=== PATIENT | male | born 1965 | race Caucasian/White ===

== ENCOUNTER 2018-01-27 09:51 | Day surgery (SDC) | payer OTHER ==
[~2018-01-27] VITALS: Ht 177.8 cm; Wt 88.6 kg
[~2018-01-27 09:51] MED LIST: APIX5TAB PO; METO25TA35 PO
[2018-01-27 10:14] VITALS: BP 136/81
[2018-01-27] MEDS ORDERED: LISI5TAB7 PO (10:36)
[2018-01-27] MEDS ORDERED: METO25TA91 PO (10:36)
[2018-01-27] MEDS ORDERED: PROPOFOL 10 MG/ML, 20ML ONE (12:15)
== END 2018-01-27 13:00 ==
LOC: CACL 09:51
PROVIDERS: ATTEND Internal Medicine Cardiovascular Disease
DX: I48.91 Unspecified atrial fibrillation (principal); I10 Essential (primary) hypertension
CPT/HCPCS: 92960; 93005; J2704

== ENCOUNTER 2018-05-03 08:56 | Day surgery (SDC) | payer OTHER ==
[~2018-05-03] VITALS: Ht 177.8 cm; Wt 88.6 kg
[~2018-05-03 08:56] MED LIST changes: +LISI5TAB7 PO; +METO25TA91 PO
[2018-05-03] MEDS ORDERED: SODIUM CHLORIDE 0.9% 500 ML IV PRN (09:11)
[2018-05-03 09:22] VITALS: BP 126/80
[2018-05-03] MEDS ORDERED: PLEASE ENTER HEIGHT AND WEIGHT MC SCH (09:30)
[2018-05-03] MEDS ORDERED: DRON400T PO (09:34)
[2018-05-03] MEDS ORDERED: DILT120C58 PO (09:34)
[2018-05-03 09:55] LABS: ANION GAP 6 mmol/L (5-15); CALCIUM 8.8 mg/dL (8.5-10.1); CHLORIDE 108 mmol/L (98-107); CREATININE 1.27 mg/dL (0.7-1.3)
[2018-05-03 12:26] LABS: BASOPHILS # (AUTO) 0.06 x10^3/uL (0-0.1); BASOPHILS % (AUTO) 1 % (0-1); EOSINOPHILS # (AUTO) 0.11 x10^3/uL (0-0.4); EOSINOPHILS % (AUTO) 2 % (1-7); LYMPHOCYTES # (AUTO) 1.36 x10^3/uL (1-3.4); LYMPHOCYTES % (AUTO) 19 % (22-44); MD NO; MEAN CORPUSCULAR HEMOGLOBIN 31.5 pg (27.5-34.5); MEAN CORPUSCULAR HGB CONC 34.3 g/dL (33.2-36.2); MEAN PLATELET VOLUME 8.5 fL (7.4-10.4); MONOCYTES % (AUTO) 7 % (2-9); NEUTROPHILS % (AUTO) 72 % (42-75); PLATELET COUNT 295 x10^3/uL (130-400); RED BLOOD COUNT 4.87 x10^6/uL (4.38-5.82); RED CELL DISTRIBUTION WIDTH 13.4 % (9.4-14.8)
== END 2018-05-03 13:14 | disposition home or self-care (01) ==
LOC: CACL 08:56
PROVIDERS: ATTEND Internal Medicine Cardiovascular Disease
DX: I48.91 Unspecified atrial fibrillation (principal); I10 Essential (primary) hypertension; Z72.89 Other problems related to lifestyle
CPT/HCPCS: 36415; 80048; 85025; 92960; 93005

== ENCOUNTER → 2019-02-10 | Outpatient (CLI) | payer OTHER ==
[~2019-02-10] MED LIST changes: +DILT120C58 PO; +DRON400T PO
== END | disposition home or self-care (01) ==
LOC: CFH 08:49
PROVIDERS: ATTEND Internal Medicine Cardiovascular Disease
DX: I77.810 Thoracic aortic ectasia (principal); I42.9 Cardiomyopathy, unspecified
CPT/HCPCS: 0399T; 93306

== ENCOUNTER → 2020-03-16 | Outpatient (CLI) | payer OTHER | END | disposition home or self-care (01) | LOC: CFH 08:32 | PROVIDERS: ATTEND Internal Medicine Cardiovascular Disease | DX: I35.8 Other nonrheumatic aortic valve disorders (principal); I71.2 Thoracic aortic aneurysm, without rupture | CPT/HCPCS: 93306 ==

== ENCOUNTER 2020-04-12 08:55 | Emergency (ER) | payer OTHER ==
[~2020-04-12] VITALS: Ht 177.8 cm; Wt 89.9 kg
--- NOTE | 2020-04-12 09:23 | NUR ---
PT STATES THAT HE IS "IN A-FIB AGAIN". PT HAS PREVIOUS AFIB OCCURANCES. PT AMBULATORY WITH A STEADY GAIT. PLACED PT ON REHAB SPECIALIST, IV STARTED, PA AT BEDSIDE. WILL CONTINUE TO MONITOR PT.
[2020-04-12 09:40] LABS: BASOPHILS # (AUTO) 0.07 x10^3/uL (0-0.1); BASOPHILS % (AUTO) 1 % (0-1); EOSINOPHILS # (AUTO) 0.08 x10^3/uL (0-0.4); EOSINOPHILS % (AUTO) 1 % (1-7); LYMPHOCYTES % (AUTO) 35 % (22-44); MD NO; MEAN CORPUSCULAR HEMOGLOBIN 30.6 pg (27.5-34.5); MEAN CORPUSCULAR HGB CONC 33.6 g/dL (33.2-36.2); MEAN CORPUSCULAR VOLUME 90.8 fL (81-97); MEAN PLATELET VOLUME 7.9 fL (7.4-10.4); MONOCYTES # (AUTO) 0.64 x10^3/uL (0.2-0.8); MONOCYTES % (AUTO) 10 % (2-9); NEUTROPHILS # (AUTO) 3.45 x10^3/uL (1.8-6.8); NEUTROPHILS % (AUTO) 53 % (42-75); PLATELET COUNT 354 x10^3/uL (130-400); RED BLOOD COUNT 5.57 x10^6/uL (4.38-5.82)
[2020-04-12 09:51] LABS: ALBUMIN 4.2 g/dL (3.4-5.0); ANION GAP 7 mmol/L (5-15); CALCIUM 9.4 mg/dL (8.5-10.1); CHLORIDE 103 mmol/L (98-107); CREATININE 1.28 mg/dL (0.7-1.3)
[2020-04-12 09:55] LABS: TROPONIN I < 0.015 ng/mL (0.000-0.045)
[2020-04-12] MEDS ORDERED: FENTANYL PF 100 MCG/2ML ONE (10:30)
[2020-04-12] MEDS ORDERED: ETOMIDATE 20 MG/10 ML ONE (10:33)
[2020-04-12] MEDS ORDERED: ETOMIDATE 20 MG/10 ML IVPush ONE (11:00)
[2020-04-12] MEDS ORDERED: FENTANYL PF 100 MCG/2ML IVPush ONE (11:30)
[2020-04-12 12:18] VITALS: BP 112/82
== END 2020-04-12 12:21 | disposition home or self-care (01) ==
LOC: ED 10:11
DX: I48.20 Chronic atrial fibrillation, unspecified (principal); R42 Dizziness and giddiness; R06.02 Shortness of breath; R00.2 Palpitations; I10 Essential (primary) hypertension
CPT/HCPCS: 36415; 80048; 82040; 84484; 85025; 92960; 93005; 99285; J3010; 31500

== ENCOUNTER 2020-06-06 10:38 | Emergency (ER) | payer OTHER ==
[~2020-06-06] VITALS: Ht 177.8 cm; Wt 84.0 kg
--- NOTE | 2020-06-06 11:16 | NUR ---
PT STATES HX OF A FIB, DENIES ANY CP. PT PLACED ON MONITORS, VSS. PT HR IN LOW 100'S. PT DENIES OTHER SYMPTOMS. PT AWAITING ERMD ASSESSMENT. NO DISTRESS. CONT TO MONITOR.
[2020-06-06 11:40] LABS: BASOPHILS # (AUTO) 0.06 x10^3/uL (0-0.1); BASOPHILS % (AUTO) 1 % (0-1); EOSINOPHILS # (AUTO) 0.05 x10^3/uL (0-0.4); EOSINOPHILS % (AUTO) 1 % (1-7); LYMPHOCYTES # (AUTO) 1.96 x10^3/uL (1-3.4); LYMPHOCYTES % (AUTO) 25 % (22-44); MD NO; MEAN CORPUSCULAR HGB CONC 33.2 g/dL (33.2-36.2); MEAN CORPUSCULAR VOLUME 90.4 fL (81-97); MEAN PLATELET VOLUME 7.8 fL (7.4-10.4); MONOCYTES # (AUTO) 0.68 x10^3/uL (0.2-0.8); MONOCYTES % (AUTO) 9 % (2-9); NEUTROPHILS # (AUTO) 5.18 x10^3/uL (1.8-6.8); NEUTROPHILS % (AUTO) 65 % (42-75); PLATELET COUNT 374 x10^3/uL (130-400); RED BLOOD COUNT 5.03 x10^6/uL (4.38-5.82); RED CELL DISTRIBUTION WIDTH 13.4 % (9.4-14.8)
[2020-06-06 11:52] LABS: ALBUMIN 3.8 g/dL (3.4-5.0); ANION GAP 6 mmol/L (5-15); CHLORIDE 104 mmol/L (98-107); CREATININE 1.14 mg/dL (0.7-1.3)
[2020-06-06 11:57] LABS: TROPONIN I < 0.015 ng/mL (0.000-0.045)
--- NOTE | 2020-06-06 12:00 | NUR ---
REPORT GIVEN TO BRANDIE BRIONES.
[2020-06-06] MEDS ORDERED: PROPOFOL 10 MG/ML, 20ML ONE (12:39)
[2020-06-06 13:26] VITALS: BP 129/78
== END 2020-06-06 14:19 | disposition home or self-care (01) ==
LOC: ED 11:00
DX: I48.0 Paroxysmal atrial fibrillation (principal); I10 Essential (primary) hypertension; Z79.01 Long term (current) use of anticoagulants
CPT/HCPCS: 36415; 80048; 82040; 83735; 84484; 85025; 92960; 93005; 99285

== ENCOUNTER → 2020-06-29 | Outpatient (CLI) | payer OTHER | END | disposition home or self-care (01) | LOC: STAR 08:10 | PROVIDERS: ATTEND Internal Medicine Clinical Cardiac Electrophysiology | DX: Z01.818 Encounter for other preprocedural examination (principal); Z11.59 Encounter for screening for other viral diseases | CPT/HCPCS: 36415; 87635 ==

== ENCOUNTER → 2020-06-29 | Outpatient (CLI) | payer OTHER ==
[~2020-06-29] MED LIST changes: +OMNIPAQUE 350 MG/ML, 150 ML BOTTLE ONE
== END | disposition home or self-care (01) ==
LOC: CFH 09:08
PROVIDERS: ATTEND Internal Medicine Clinical Cardiac Electrophysiology
DX: I48.0 Paroxysmal atrial fibrillation (principal); M47.814 Spondylosis without myelopathy or radiculopathy, thoracic region
CPT/HCPCS: 71046; 75572; Q9967

== ENCOUNTER 2020-07-04 06:04 | Inpatient (IN) | payer OTHER ==
[~2020-07-04] VITALS: Ht 177.8 cm; Wt 87.8 kg
[~2020-07-04 06:04] MED LIST changes: -OMNIPAQUE 350 MG/ML, 150 ML BOTTLE ONE
[2020-07-04] MEDS ORDERED: SODIUM CHLORIDE 0.9% 1,000 ML IV SCH ×2 (06:22→06:30)
[2020-07-04 06:32] VITALS: BP 131/81
[2020-07-04 06:56] LABS: BASOPHILS # (AUTO) 0.06 x10^3/uL (0-0.1); BASOPHILS % (AUTO) 1 % (0-1); EOSINOPHILS # (AUTO) 0.11 x10^3/uL (0-0.4); EOSINOPHILS % (AUTO) 2 % (1-7); LYMPHOCYTES # (AUTO) 1.44 x10^3/uL (1-3.4); LYMPHOCYTES % (AUTO) 27 % (22-44); MD NO; MEAN CORPUSCULAR HEMOGLOBIN 30.8 pg (27.5-34.5); MEAN CORPUSCULAR HGB CONC 33.5 g/dL (33.2-36.2); MEAN PLATELET VOLUME 7.9 fL (7.4-10.4); MONOCYTES # (AUTO) 0.57 x10^3/uL (0.2-0.8); MONOCYTES % (AUTO) 11 % (2-9); NEUTROPHILS # (AUTO) 3.26 x10^3/uL (1.8-6.8); NEUTROPHILS % (AUTO) 60 % (42-75); PLATELET COUNT 320 x10^3/uL (130-400); RED BLOOD COUNT 4.42 x10^6/uL (4.38-5.82); RED CELL DISTRIBUTION WIDTH 13.8 % (9.4-14.8)
[2020-07-04 07:05] LABS: ANION GAP 8 mmol/L (5-15); CALCIUM 8.5 mg/dL (8.5-10.1); CHLORIDE 108 mmol/L (98-107)
[2020-07-04 07:06] LABS: CREATININE 0.84 mg/dL (0.7-1.3)
[2020-07-04] MEDS ORDERED: MIDAZOLAM 1 MG/ML, 2ML ONE (07:48)
[2020-07-04] MEDS ORDERED: FENTANYL PF 250 MCG/5ML ONE (07:48)
[2020-07-04] MEDS ORDERED: SUCCINYLCHOLINE 20 MG/ML, 10ML ONE (07:50)
[2020-07-04] MEDS ORDERED: DEXAMETHASONE 4 MG/ML, 1ML ONE ×2 (07:51→07:52)
[2020-07-04] MEDS ORDERED: PROPOFOL 10 MG/ML, 20ML ONE (07:52)
[2020-07-04] MEDS ORDERED: ROCURONIUM 10 MG/ML,10ML ONE (07:52)
[2020-07-04] MEDS ORDERED: ONDANSETRON 2MG/ML, 2ML ONE (07:52)
[2020-07-04] MEDS ORDERED: LIDOCAINE 2%, 20ML ONE (08:11)
[2020-07-04] MEDS ORDERED: APIXABAN 5 MG TABLET ONE (08:19)
[2020-07-04] MEDS ORDERED: VASOPRESSIN 20 UNIT/ML, 1ML ONE (09:00)
[2020-07-04] MEDS ORDERED: FENTANYL PF 100 MCG/2ML ONE ×2 (10:10→12:26)
[2020-07-04] MEDS ORDERED: ACETAMINOPHEN 325 MG TABLET PO PRN (14:00)
[2020-07-04] MEDS ORDERED: LABETALOL 5MG/ML, 20ML IV PRN (14:00)
[2020-07-04] MEDS ORDERED: HYDROmorphone 1 MG/ML, 1ML INJ IVPush PRN (14:00)
[2020-07-04] MEDS ORDERED: MEPERIDINE/PF 25MG/0.5ML IVPush PRN (14:00)
[2020-07-04] MEDS ORDERED: EPHEDRINE 50 MG/ML, 1ML IVPush PRN (14:00)
[2020-07-04] MEDS ORDERED: OXYcodone 5 MG/5 ML ORAL.SOL UDC PO PRN (14:00)
[2020-07-04] MEDS ORDERED: ONDANSETRON 2MG/ML, 2ML IVPush PRN ×2 (14:00→17:00)
[2020-07-04] MEDS ORDERED: hydrALAzine 20 MG/ML, 1ML IV PRN (14:00)
[2020-07-04] MEDS ORDERED: ALBUTEROL SULFATE 2.5 MG/3 ML NPPB PRN (14:00)
[2020-07-04] MEDS ORDERED: DIPHENHYDRAMINE 50 MG/ML, 1ML IVPush PRN (14:00)
[2020-07-04] MEDS ORDERED: FENTANYL PF 100 MCG/2ML IV PRN (14:00)
[2020-07-04] MEDS ORDERED: PROMETHAZINE 12.5 MG SUPP PR PRN (14:00)
[2020-07-04] MEDS ORDERED: PROMETHAZINE 25 MG/ML, 1ML IVPush PRN (14:00)
[2020-07-04] MEDS ORDERED: MIDAZOLAM 1 MG/ML, 2ML IV PRN (14:00)
[2020-07-04] MEDS ORDERED: DIAZEPAM 5 MG/ML, 2ML IVPush PRN (14:00)
[2020-07-04] MEDS: APIXABAN 5 MG TABLET PO SCH (14:11)
[2020-07-04] MEDS ORDERED: PANTOPRAZOLE 20MG TABLET PO ONE (14:30)
[2020-07-04 15:28] VITALS: BP 118/74
[2020-07-04] MEDS ORDERED: ACETAMINOPHEN 500 MG TABLET PO PRN (17:00)
[2020-07-04] MEDS: SOTALOL 80MG TABLET PO SCH (18:35)
[2020-07-04 19:55] VITALS: BP 105/73
[2020-07-04 20:40] VITALS: BP 110/69
[2020-07-04 21:05] VITALS: BP 105/73
[2020-07-04 21:53] VITALS: BP_SYST 110; BP_SYST 92; BP_DIAS 58; BP_DIAS 69
[2020-07-04] MEDS: DIPHENHYDRAMINE 25 MG CAPSULE PO PRN (22:25)
[2020-07-05 01:21] VITALS: BP 96/61
[2020-07-05] MEDS: SOTALOL 80MG TABLET PO SCH ×2 (06:17→18:40)
[2020-07-05 07:08] VITALS: BP 111/73
[2020-07-05] MEDS: APIXABAN 5 MG TABLET PO SCH ×2 (09:02→20:29)
[2020-07-05] MEDS: LISINOPRIL 20 MG TABLET PO SCH (09:02)
[2020-07-05] MEDS ORDERED: KETOROLAC 30 MG/1 ML IVPush PRN (10:00)
[2020-07-05 12:48] VITALS: BP 102/62
[2020-07-05] MEDS: DIPHENHYDRAMINE 25 MG CAPSULE PO PRN (20:29)
[2020-07-05 21:36] VITALS: BP 118/81
[2020-07-06 02:30] VITALS: BP 110/80
[2020-07-06] MEDS: SOTALOL 80MG TABLET PO SCH (06:24)
[2020-07-06 06:39] VITALS: BP 119/76
[2020-07-06] MEDS ORDERED: SOTA80TA18 PO (09:08)
[2020-07-06] MEDS: APIXABAN 5 MG TABLET PO SCH (09:43)
[2020-07-06] MEDS: LISINOPRIL 20 MG TABLET PO SCH (09:44)
== END 2020-07-06 12:07 | disposition home or self-care (01) | DRG 274 ==
LOC: CACL 06:04 → ORIP 13:43 → 5SO 15:17 → OBSVTOIN 07-05 16:22 → DCLOUNGE 07-06 11:58
PROVIDERS: ADMIT Internal Medicine Clinical Cardiac Electrophysiology; ATTEND Internal Medicine Clinical Cardiac Electrophysiology
PROC: 02K83ZZ Map Conduction Mechanism, Percutaneous Approach (ICD-10-PCS; 2020-07-04)
PROC: B246YZZ Ultrasonography of Right and Left Heart using Other Contrast (ICD-10-PCS; 2020-07-04)
PROC: 4A12X45 Monitoring of Cardiac Electrical Activity, Ambulatory, External Approach (ICD-10-PCS; 2020-07-04)
PROC: 02583ZZ Destruction of Conduction Mechanism, Percutaneous Approach (ICD-10-PCS; principal; 2020-07-04 08:00)
DX: I48.0 Paroxysmal atrial fibrillation (principal); D68.69 Other thrombophilia; I48.92 Unspecified atrial flutter; I10 Essential (primary) hypertension; Z87.891 Personal history of nicotine dependence
CPT/HCPCS: 36415; 93613; 93656; 93657; 93662; J3490; 80048; 85025; 85347; 93005; 93308; 93312; 93321; 93325; C1732; C1766; C1769; C1893; C1894; G0378; J1100; J1885; J2250; J2405; J2704; J3010; C1730; C1759; J0330; Q0163

== ENCOUNTER 2020-07-15 23:39 | Emergency (ER) | payer OTHER ==
[~2020-07-15] VITALS: Ht 177.8 cm; Wt 84.0 kg
[~2020-07-15 23:39] MED LIST changes: +SOTA80TA18 PO
[2020-07-15] MEDS ORDERED: ADENOSINE 6 MG/2 ML ONE (23:58)
[2020-07-16] MEDS ORDERED: ADENOSINE 6 MG/2 ML IVPush ONE ×2
[2020-07-16] MEDS ORDERED: SODIUM CHLORIDE FLUSH 10ML SYR IVF ONE
[2020-07-16] MEDS ORDERED: SODIUM CHLORIDE 0.9% 1,000ML IVBOLUS ONE
[2020-07-16] MEDS ORDERED: PROPOFOL 10 MG/ML, 20ML ONE (00:07)
--- NOTE | 2020-07-16 00:35 | NUR ---
PT CAME THROUGHT TRIAGE WITH A HEART RATE OF 160. PT TAKEN TO ROOM 25 AND PLACED ON STATISTICAL PROGRAMMER ANALYST AND ZOLE PADS. WAS AT THE BEDSIDE. VS OBTAINED, IV STARTED. PT REPORTED HE HAD AN ABLATION LAST WED BY DR JOHNSON FOR AFIB AND FELT HIS HEART RACING TONIGHT. DR SHEARER PUSHED 6 MG IV OF ADENOSINE TO SLOW THE RHYTHM DOWN AND THE PATIENT WAS FOUND TO BE IN AFIB RVR. DR SHEARER WENT OVER CARDIOVERSION WITH PATIENT. CONSENT SIGNED. PT WAS CARDIOVERTED WITH CONSCIOUS SEDATION. PROPOFOL PUSHED BY DR SHEARER. PT IS NOW IN NSR AT 75. PT ALERT AND TALKING. VS STABLE. CALL LIGHT IN PLACE. WILL CONTINUE TO MONITOR.
[2020-07-16 00:43] LABS: BASOPHILS # (AUTO) 0.09 x10^3/uL (0-0.1); BASOPHILS % (AUTO) 1 % (0-1); EOSINOPHILS # (AUTO) 0.08 x10^3/uL (0-0.4); EOSINOPHILS % (AUTO) 1 % (1-7); LYMPHOCYTES # (AUTO) 2.41 x10^3/uL (1-3.4); LYMPHOCYTES % (AUTO) 31 % (22-44); MD NO; MEAN CORPUSCULAR HEMOGLOBIN 30.8 pg (27.5-34.5); MEAN CORPUSCULAR HGB CONC 33.7 g/dL (33.2-36.2); MEAN CORPUSCULAR VOLUME 91.5 fL (81-97); MEAN PLATELET VOLUME 7.7 fL (7.4-10.4); MONOCYTES % (AUTO) 9 % (2-9); NEUTROPHILS # (AUTO) 4.39 x10^3/uL (1.8-6.8); NEUTROPHILS % (AUTO) 57 % (42-75); PLATELET COUNT 394 x10^3/uL (130-400)
[2020-07-16 00:54] LABS: ALANINE AMINOTRANSFERASE 38 U/L (12-78); ANION GAP 9 mmol/L (5-15); CALCIUM 8.1 mg/dL (8.5-10.1); CHLORIDE 109 mmol/L (98-107); CREATININE 0.97 mg/dL (0.7-1.3)
--- NOTE | 2020-07-16 00:55 | NUR ---
PT ALERT AND TALKING. NO ACUTE DISTRESS NOTED. FIRE OPERATIONS FORESTER ON. NSR NOTED. AT BEDSIDE. VS STABLE. WILL CONTINUE TO MONITOR.
[2020-07-16 01:04] LABS: ALKALINE PHOSPHATASE 56 U/L (45-117); BILIRUBIN,TOTAL 0.3 mg/dL (0.2-1.0); T4 (THYROXINE) 5.1 mcg/dL (4.5-12.1)
--- NOTE | 2020-07-16 01:16 | NUR ---
PATIENT RESTING IN ROOM. NO ACUTE DISTRESS NOTED. WILL CONTINUE TO MONITOR.
[2020-07-16 01:49] VITALS: BP 103/70
--- NOTE | 2020-07-16 01:49 | NUR ---
PT A&O X4, PT'S VS STABLE. NO ACUTE DISTRESS NOTED. PT DISCHARGED PER DR SHEARER.
== END 2020-07-16 01:52 | disposition home or self-care (01) ==
LOC: ED 07-16 00:25
DX: I48.91 Unspecified atrial fibrillation (principal); R07.89 Other chest pain; I10 Essential (primary) hypertension; R94.31 Abnormal electrocardiogram [ECG] [EKG]
CPT/HCPCS: 36415; 71045; 80053; 83735; 84436; 84443; 85025; 92960; 93005; 96361; 96374; 99291; J0153; J7030

== ENCOUNTER 2020-08-24 20:11 | Emergency (ER) | payer OTHER ==
[~2020-08-24] VITALS: Ht 177.8 cm; Wt 87.6 kg
--- NOTE | 2020-08-24 20:42 | NUR ---
PT CAME IN CO OF HEART PALP IN HIS CHEST THAT STARTED AT ABOUT 1930. PT HAS HX OF AFIFIB AND TAKES ELIQUIS. PT HAS BEEN CARDIOVERTED BEFORE. PT IS RESTING IN [facility]. ACCOMPANIED BY . EKG COMPLETE.
[2020-08-24] MEDS ORDERED: METOPROLOL 1 MG/ML, 5ML ONE (20:47)
[2020-08-24] MEDS: METOPROLOL 1 MG/ML, 5ML IVPush PRN ×2 (20:50→21:05)
--- NOTE | 2020-08-24 20:57 | NUR ---
adm 1st dose of lopressor. hr still 154.
[2020-08-24] MEDS ORDERED: SODIUM CHLORIDE FLUSH 10ML SYR IVF ONE (21:00)
[2020-08-24 21:31] LABS: BASOPHILS % (AUTO) 2 % (0-1); EOSINOPHILS % (AUTO) 2 % (1-7); LYMPHOCYTES % (AUTO) 36 % (22-44); MEAN CORPUSCULAR HEMOGLOBIN 30.1 pg (27.5-34.5); MEAN PLATELET VOLUME 8.5 fL (7.4-10.4); MONOCYTES % (AUTO) 9 % (2-9); NEUTROPHILS % (AUTO) 52 % (42-75); PLATELET COUNT 346 x10^3/uL (130-400); RED CELL DISTRIBUTION WIDTH 13.5 % (9.4-14.8)
[2020-08-24 21:35] LABS: MD NO
[2020-08-24 21:36] LABS: ALANINE AMINOTRANSFERASE 30 U/L (12-78); ALBUMIN 3.8 g/dL (3.4-5.0); ANION GAP 7 mmol/L (5-15); CALCIUM 8.8 mg/dL (8.5-10.1); CHLORIDE 105 mmol/L (98-107); CREATININE 1.03 mg/dL (0.7-1.3)
[2020-08-24 21:38] LABS: ALKALINE PHOSPHATASE 66 U/L (45-117); BILIRUBIN,TOTAL 0.3 mg/dL (0.2-1.0); TOTAL PROTEIN 7.3 g/dL (6.4-8.2)
[2020-08-24] MEDS ORDERED: ADENOSINE 6 MG/2 ML ONE (21:44)
[2020-08-24] MEDS ORDERED: PROPOFOL 10 MG/ML, 20ML ONE (21:46)
--- NOTE | 2020-08-24 21:55 | NUR ---
TO ROOM TO ASSIST WITH CARDIOVERSION, TO LOBBY. PROPOFOL 40MG INITITALLY, FOLLOWED BY 20MG IVP. PT WITH SEDATION AND MAINTAIN SP02 98-100% 2L, 3 ATTEMTPS WITH 200J SYNC WITH RESOLUTION AFTER THIRD ATTEMPT. TO BEDSIDE. DR RAE TALKING WITH CARDIOLOGY, ZHANG RN REMAINS WITH PT FOR RECOVERY.
--- NOTE | 2020-08-24 22:03 | NUR ---
MEDS PULLED FOR PRIMARY RN.
--- NOTE | 2020-08-24 22:09 | NUR ---
PT RESTING IN GURNEY AFTER CRDIOVERSION. PT TOLERATED WELL. PT A0X4. MOVES ALL EXTREMETIES. FOLLOWS COMMANDS
--- NOTE | 2020-08-24 22:13 | NUR ---
PT GIVEN 60MG PROPOFOL PER MD ORDER FOR PROCEDUARL SEDATION
[2020-08-24] MEDS ORDERED: PROPOFOL 10 MG/ML, 20ML IVPush ONE (22:30)
[2020-08-24 23:26] VITALS: BP 109/70
--- NOTE | 2020-08-24 23:27 | NUR ---
PT TOLERATED PO LIQUIDS. AMBULATED WITH STEADY GAIT. HAS SAFE RIDE HOME.
== END 2020-08-24 23:28 | disposition home or self-care (01) ==
LOC: ED 22:00
DX: I48.92 Unspecified atrial flutter (principal); I48.91 Unspecified atrial fibrillation; I10 Essential (primary) hypertension; R00.0 Tachycardia, unspecified
CPT/HCPCS: 36415; 80053; 85025; 92960; 93005; 96374; 99291; J2704

== ENCOUNTER → 2020-08-31 | Outpatient (CLI) | payer OTHER | END | disposition home or self-care (01) | LOC: STAR 08:25 | PROVIDERS: ATTEND Anesthesiology | DX: Z01.812 Encounter for preprocedural laboratory examination (principal); Z20.828 Contact with and (suspected) exposure to other viral communicable diseases | CPT/HCPCS: 36415; 87635 ==

== ENCOUNTER → 2021-06-17 | Outpatient (CLI) | payer OTHER ==
[~2021-06-17] MED LIST changes: +COLC0.6C3 PO; -DRON400T PO; +DRON400T6 PO; +FINA1TAB16 PO; +LISI-170 PO; +PANT40TA6 PO; +SOTA120T26 PO; +UBID100C24 PO
== END | disposition home or self-care (01) ==
LOC: CFH 12:37
PROVIDERS: ATTEND Internal Medicine Cardiovascular Disease
DX: I08.2 Rheumatic disorders of both aortic and tricuspid valves (principal); I42.9 Cardiomyopathy, unspecified
CPT/HCPCS: 93306; 93356

== ENCOUNTER 2021-08-02 05:42 | Day surgery (SDC) | payer OTHER ==
[2021-07-31 09:52] LABS: BASOPHILS % (AUTO) 2 % (0-1); EOSINOPHILS % (AUTO) 4 % (1-7); LYMPHOCYTES % (AUTO) 33 % (22-44); MEAN CORPUSCULAR HEMOGLOBIN 30.6 pg (27.5-34.5); MEAN CORPUSCULAR HGB CONC 34.3 g/dL (33.2-36.2); MEAN PLATELET VOLUME 8.3 fL (7.4-10.4); MONOCYTES % (AUTO) 12 % (2-9); NEUTROPHILS % (AUTO) 49 % (42-75); PLATELET COUNT 304 x10^3/uL (130-400); RED BLOOD COUNT 5.19 x10^6/uL (4.38-5.82); RED CELL DISTRIBUTION WIDTH 13.8 % (9.4-14.8)
[2021-07-31 10:01] LABS: ALANINE AMINOTRANSFERASE 38 U/L (12-78); ALBUMIN 3.9 g/dL (3.4-5.0); ANION GAP 7 mmol/L (5-15); CALCIUM 9.3 mg/dL (8.5-10.1); CHLORIDE 104 mmol/L (98-107); CREATININE 1.09 mg/dL (0.7-1.3)
[2021-07-31 10:03] LABS: ALKALINE PHOSPHATASE 55 U/L (45-117); BILIRUBIN,TOTAL 1.1 mg/dL (0.2-1.0); TOTAL PROTEIN 7.5 g/dL (6.4-8.2)
[~2021-08-02] VITALS: Ht 177.8 cm; Wt 85.4 kg
[2021-08-02] MEDS ORDERED: TRANEXAMIC ACID 100 MG/ML, 10ML ONE ×2 (06:13)
[2021-08-02] MEDS ORDERED: ROPIvacaine/PF 0.5%, 20 ML ONE (06:13)
[2021-08-02] MEDS ORDERED: EPINEPHRINE 1 MG/ML, 1ML ONE (06:14)
[2021-08-02] MEDS ORDERED: VANCOMYCIN 1,000 MG ONE (06:14)
[2021-08-02] MEDS ORDERED: ROPIvacaine/PF 0.5%, 30 ML ONE (06:14)
[2021-08-02] MEDS ORDERED: SODIUM CHLORIDE 0.9% 50 ML ONE (06:14)
[2021-08-02 06:16] VITALS: BP 135/88
[2021-08-02] MEDS ORDERED: KETOROLAC 30 MG/1 ML ONE (06:16)
[2021-08-02] MEDS ORDERED: FENTANYL PF 250 MCG/5ML ONE (06:27)
[2021-08-02] MEDS ORDERED: MIDAZOLAM 1 MG/ML, 2ML ONE (06:27)
[2021-08-02] MEDS ORDERED: LACTATED RINGERS 1,000 ML IV SCH (06:30)
[2021-08-02] MEDS ORDERED: CHLORHEXIDINE 15 ML UDC PO ONE (06:30)
[2021-08-02] MEDS ORDERED: GABAPENTIN 300 MG CAPSULE ONE (06:45)
[2021-08-02] MEDS ORDERED: ACETAMINOPHEN 500 MG TABLET ONE (06:46)
[2021-08-02] MEDS ORDERED: DIPHENHYDRAMINE 25 MG CAPSULE PO PRN (07:00)
[2021-08-02] MEDS ORDERED: MAGNESIUM HYDROXIDE 8%, 30ML UDC PO PRN (07:00)
[2021-08-02] MEDS ORDERED: CEFAZOLIN PMX 2GM/50ML 50 ML IVPB SCH (07:00)
[2021-08-02] MEDS ORDERED: NS + 20MEQ KCL 1,000 ML IV SCH (07:00)
[2021-08-02] MEDS ORDERED: GABAPENTIN 300 MG CAPSULE PO ONE (07:00)
[2021-08-02] MEDS ORDERED: ZOLPIDEM 5MG TABLET PO PRN (07:00)
[2021-08-02] MEDS ORDERED: OXYcodone IR 5MG TABLET PO PRN (07:00)
[2021-08-02] MEDS ORDERED: ACETAMINOPHEN 500 MG TABLET PO ONE (07:00)
[2021-08-02] MEDS ORDERED: BISACODYL 10 MG SUPP PR PRN (07:00)
[2021-08-02] MEDS ORDERED: ONDANSETRON 2MG/ML, 2ML IV PRN (07:00)
[2021-08-02] MEDS ORDERED: HYDROcodone/APAP 5/325 TABLET PO PRN (07:00)
[2021-08-02] MEDS ORDERED: SENNA/DOCUSATE TABLET PO PRN (07:00)
[2021-08-02] MEDS ORDERED: ACETAMINOPHEN 650 MG/20.3 ML UDC PO PRN (07:00)
[2021-08-02] MEDS ORDERED: ONDANSETRON 4 MG TABLET PO PRN (07:00)
[2021-08-02] MEDS ORDERED: ALBUTEROL SULFATE 2.5 MG/3 ML NPPB PRN (08:00)
[2021-08-02] MEDS ORDERED: METOCLOPRAMIDE 5 MG/ML, 2ML IV PRN (08:00)
[2021-08-02] MEDS ORDERED: LABETALOL 5MG/ML, 20ML IV PRN (08:00)
[2021-08-02] MEDS ORDERED: MEPERIDINE/PF 25MG/0.5ML IVPush PRN (08:00)
[2021-08-02] MEDS ORDERED: PROMETHAZINE 25 MG/ML, 1ML IV PRN (08:00)
[2021-08-02] MEDS ORDERED: hydrALAzine 20 MG/ML, 1ML IV PRN (08:00)
[2021-08-02] MEDS ORDERED: KETOROLAC 30 MG/1 ML IV PRN (08:00)
[2021-08-02] MEDS ORDERED: ONDANSETRON 2MG/ML, 2ML IVPush PRN (08:00)
[2021-08-02] MEDS ORDERED: DIAZEPAM 5 MG/ML, 2ML IV PRN ×2 (08:00)
[2021-08-02] MEDS ORDERED: HYDROmorphone 1 MG/ML, 1ML INJ IV PRN (08:00)
[2021-08-02] MEDS: FENTANYL PF 100 MCG/2ML IV PRN ×2 (08:55→09:19)
[2021-08-02] MEDS ORDERED: FENTANYL PF 100 MCG/2ML ONE (08:56)
[2021-08-02] MEDS ORDERED: DOCUSATE 100 MG CAPSULE PO SCH (09:00)
[2021-08-02] MEDS ORDERED: LISINOPRIL 20 MG TABLET PO SCH (09:00)
[2021-08-02] MEDS ORDERED: OXYcodone 5 MG/5 ML ORAL.SOL UDC ONE (09:17)
[2021-08-02] MEDS: OXYcodone 5 MG/5 ML ORAL.SOL UDC PO PRN ×2 (09:17→11:10)
[2021-08-02] MEDS ORDERED: OXYcodone IR 5MG TABLET ONE ×2 (11:09→11:12)
[2021-08-02] MEDS ORDERED: ASPIRIN 81 MG TABLET EC PO SCH (18:00)
[2021-08-03] MEDS ORDERED: DEXAMETHASONE 4 MG/ML, 1ML IVPush SCH (06:00)
== END 2021-08-02 11:35 | disposition home or self-care (01) ==
LOC: OUT 05:42
PROVIDERS: ATTEND Orthopaedic Surgery
DX: M16.0 Bilateral primary osteoarthritis of hip (principal); M25.752 Osteophyte, left hip; M25.751 Osteophyte, right hip; I10 Essential (primary) hypertension; Z20.822 Contact with and (suspected) exposure to COVID-19; Z79.899 Other long term (current) drug therapy
CPT/HCPCS: 27130; 36415; 72170; 73523; 80053; 85025; 87081; 87147; 93005; 97162; 97166; C1713; C1776; J0171; J1885; J2250; J2795; J3010; J3370; J7120; U0003; U0005; 76000